=== PATIENT | male | born 1935 | race Caucasian/White ===

== ENCOUNTER 2020-07-03 22:24 | Inpatient (IN) | payer OTHER ==
[~2020-07-03] VITALS: Ht 182.9 cm; Wt 120.2 kg
[2020-07-04 01:11] LABS: HEMOGLOBIN 16.1 gm/dl (14.0-17.5); RED BLOOD COUNT 5.62 M/UL (4.20-5.50); WHITE BLOOD COUNT 8.8 K/UL (4.5-11.0)
[2020-07-04 01:38] LABS: BUN/CREATININE RATIO 22 (0-10)
[2020-07-04 04:27] LABS: HEMOGLOBIN 14.3 gm/dl (14.0-17.5); RED BLOOD COUNT 5.3 M/UL (4.20-5.50)
[2020-07-04] MEDS ORDERED: RANEXA500 MG PO (06:40)
[2020-07-04] MEDS ORDERED: GLUCOTROL 10 MG10 MG PO (06:41)
[2020-07-04] MEDS ORDERED: NORVASC10 MG PO (06:41)
[2020-07-04] MEDS ORDERED: CATAPRES 0.1MG0.1 MG PO (06:41)
[2020-07-04] MEDS ORDERED: HYDRALAZINE HC100 MG PO (06:42)
[2020-07-04] MEDS ORDERED: TOPROL XL200 MG PO (06:44)
[2020-07-04] MEDS ORDERED: ZOCOR10 MG PO (06:44)
[2020-07-04] MEDS ORDERED: TRADJENTA5 MG PO (06:45)
[2020-07-04] MEDS ORDERED: RAPAFLO8 MG PO (06:45)
[2020-07-04] MEDS ORDERED: MONTELUKAST SOD10 MG PO (06:46)
[2020-07-04] MEDS ORDERED: FARXIGA5 MG PO (06:46)
[2020-07-04] MEDS ORDERED: NITROSTAT 0.40.4 MG SL (06:46)
[2020-07-04] MEDS ORDERED: ADULT LOW DOSE81 MG PO (06:47)
[2020-07-04] MEDS ORDERED: NUVIGIL150 MG PO (06:49)
[2020-07-04] MEDS ORDERED: NEXIUM40 MG PO (14:09)
[2020-07-04] MEDS ORDERED: DIOVAN160 MG PO (14:11)
[2020-07-04] MEDS ORDERED: IMDUR ER TAB 3030 MG PO (14:11)
[2020-07-05 06:28] LABS: HEMOGLOBIN 15.4 gm/dl (14.0-17.5); RED BLOOD COUNT 5.43 M/UL (4.20-5.50)
[2020-07-05 06:37] LABS: WHITE BLOOD COUNT 13.4 K/UL (4.5-11.0)
[2020-07-06 03:12] LABS: HEMOGLOBIN 14.9 gm/dl (14.0-17.5); RED BLOOD COUNT 5.24 M/UL (4.20-5.50); WHITE BLOOD COUNT 10.5 K/UL (4.5-11.0)
[2020-07-07 03:15] LABS: HEMOGLOBIN 16.1 gm/dl (14.0-17.5); RED BLOOD COUNT 5.75 M/UL (4.20-5.50); WHITE BLOOD COUNT 13.2 K/UL (4.5-11.0)
--- NOTE | 2020-07-07 20:18 | NUR ---
PATIENT IS EXTREMLY AGGITATED AND DEMANDING TO SEE A PHYSICIAN POST FALL, CT OF HEAD IS NEGATIVE EXCEPT FOR A HEMOTOMA, DR CORDERO NOTIFIED OF PATIENT REQUEST WELL DR WRIGHT. ORDERS NOTED TO DISCONTINUE LOVENOX. CORRECTIONAL COUNSELOR/CASE MANAGER NOTIFIED OF PATIENT AGGITATION AND REQUEST TO SEE A PHYSICIAN. DR WRIGHT NOTIFIED OF PATIENT STATING HE IS HAVING VISUAL CHANGES WITH INCREASED PAIN IN HIS HEAD. NO NEW ORDERS AT THIS TIME.
--- NOTE | 2020-07-07 20:52 | NUR ---
ORCHID SUPERINTENDENT ZENOBIA SPOKE WITH PATIENT ABOUT WANTING TO SEE A PHYSICIAN, REPORT GIVEN TO VIKTORIA HOLLAND. SPOKE WITH DAUGHTER ABOUT PATIENT STATUS. PATIENT VERBALIZED TO DAUGHTER HE WAS IN A HALLWAY AND SEEMED CONFUSED, PATIENT IS IN HIS ROOM, AWARE OF PATIENT CONFUSION POST FALL, NO NEW ORDERS NOTED.
[2020-07-08 06:23] LABS: HEMOGLOBIN 15.6 gm/dl (14.0-17.5); RED BLOOD COUNT 5.48 M/UL (4.20-5.50); WHITE BLOOD COUNT 12.3 K/UL (4.5-11.0)
[2020-07-08] MEDS ORDERED: DEXAMETHASONE1 MG PO (12:47)
[2020-07-08] MEDS ORDERED: LEVOFLOXACIN500 MG PO (12:47)
--- NOTE | 2020-07-08 14:09 | NUR ---
PER RN CODY, PATIENT SATS DOWN TO 88% ON ROOM AIR
--- NOTE | 2020-07-10 15:04 | NUR ---
LATE ENTRY --07/07/20 AT 1800. HEARD LOUD NOISE, ENTERED ROOM TO FIND PT LYING ON FLOOR WITH SUPPER TRAY CONTENTS ON FLOOR. PT STATES WAS MOVING SUPPER TRAY TO ANOTHER PART OF ROOM AND IT THREW HIM OFF BALANCE. HELPED PT BACK TO BED, CALLED DR. ADAMS, WENT WITH PT FOR STAT HEAD CT, ON WAY BACK TO ROOM PT ASKED THAT I NOT CALL HIS FAMILY UNTIL HE FOUND OUT RESULTS OF HEAD CT AND THEN HE WOULD CALL. PT VS WITHIN NORMAL LIMITS AT TIME.
== END 2020-07-08 15:36 | disposition home or self-care (01) | DRG 177 ==
LOC: ER1 22:24 → MED SURG 4 07-04 03:02 → ZEROF 07-04 03:02 → MED SURG 4 07-04 13:36
PROVIDERS: Internal Medicine; ADMIT Internal Medicine
PROC: 8E0ZXY6 Isolation (ICD-10-PCS; principal; 2020-07-04)
PROC: XW033E5 Introduction of Remdesivir Anti-infective into Peripheral Vein, Percutaneous Approach, New Technology Group 5 (ICD-10-PCS; 2020-07-04)
DX: U07.1 COVID-19 (principal); J12.82 Pneumonia due to coronavirus disease 2019; J96.01 Acute respiratory failure with hypoxia; N17.9 Acute kidney failure, unspecified; I12.9 Hypertensive chronic kidney disease with stage 1 through stage 4 chronic kidney disease, or unspecified chronic kidney disease; N18.30 Chronic kidney disease, stage 3 unspecified; E11.22 Type 2 diabetes mellitus with diabetic chronic kidney disease; E78.5 Hyperlipidemia, unspecified; N40.0 Benign prostatic hyperplasia without lower urinary tract symptoms; Z79.899 Other long term (current) drug therapy; Z79.01 Long term (current) use of anticoagulants
CPT/HCPCS: 36415; 36600; 70450; 71045; 80053; 82550; 82553; 82728; 82803; 82962; 83735; 83874; 84484; 85025; 85379; 86140; 87040; 93005; 94640; 94664; 94760; 96365; 96366; 96367; 96368; 96375; 96376; 99285; J0456; J0696; J1100; J1650; J7030; U0002

== ENCOUNTER → 2021-10-08 | Outpatient (CLI) | payer OTHER ==
[~2021-10-08] MED LIST: ADULT LOW DOSE81 MG PO; CATAPRES 0.1MG0.1 MG PO; DEXAMETHASONE1 MG PO; DIOVAN160 MG PO; FARXIGA5 MG PO; GLUCOTROL 10 MG10 MG PO; HYDRALAZINE HC100 MG PO; IMDUR ER TAB 3030 MG PO; LEVOFLOXACIN500 MG PO; MONTELUKAST SOD10 MG PO; NEXIUM40 MG PO; NITROSTAT 0.40.4 MG SL; NORVASC10 MG PO; NUVIGIL150 MG PO; RANEXA500 MG PO; RAPAFLO8 MG PO; TOPROL XL200 MG PO; TRADJENTA5 MG PO; ZOCOR10 MG PO
== END ==
LOC: EXRD 10-02 14:30
DX: R22.1 Localized swelling, mass and lump, neck (principal)
CPT/HCPCS: 76536